=== PATIENT | female | born 1985 | race Caucasian/White ===

== ENCOUNTER 2022-06-27 16:26 | Emergency (ER) | payer MEDICARE, OTHER, SELFPAY ==
[2022-06-27 16:33] VITALS: BP 148/90; PULSE 94; RESP 26; TEMP 36.2; O2SAT 100
--- NOTE | 2022-06-27 16:40 | ED.GENADUL_ITS ---
Discharge Plan Disposition Patient Disposition: Home Condition: Stable Discharge Details Clinical Impression: Vomiting ED Provider: Alexandria Meraz Home Meds and New Rx's Prescriptions: New promethazine 12.5 mg suppository 12.5 mg RI TID PRN (Reason: nausea and vomiting) Qty: 12 0RF Rx Instructions: Take one suppository per rectum up to three times daily as needed No Action gabapentin 400 mg Capsule 400 mg PO PRN PRN (Reason: Pain) bupropion HCl [Wellbutrin] 100 mg Tablet 300 mg PO DAILY Discharge Instructions Instructions: Acute Nausea and Vomiting (ED) Additional Instructions: CT shows no abnormality. I suspect this may be from daily use of marijuana. Take the nausea medication up to 3 times daily as needed approximately 20 minutes before eating or drinking anything. Use of suppositories if actively vomiting. Follow up with primary care provider in 3-5 days. Return to ED sooner if any worsening or concerns. Increase oral fluids. Medical Decision Making 36-year-old female presents to the ER with chief complaint of nausea vomiting which began this morning. Patient actively having episodes of emesis. Labs ordered, urinalysis urine drug screen and 4 mg of Zofran and liter normal saline. CBC shows leukocytosis with white blood cell count of 18.59, absolute neutrophils 16.25, glucose 109, urinalysis shows 40 ketones THC positive. 1804: Patient continuing to vomit after a total of 8mg Zofran, 12.5 mg Promethazine ordered, will consider droperidol. 1836: Patient sleeping after 12.5mg Phenergan. I do suspect cannabinoid hyperemesis syndrome. CT is within normal limits. Patient feeling better after the Phenergan no further emesis noted. I did discuss home care and follow-up care with patient. Discussed strict return instructions. Patient was given Phenergan tablets to go and a prescription for suppositories if needed. This text was generated using [employer] system, please disregard any oddities of phrase or misspellings. Medical Records Medical records reviewed: Yes I reviewed the patient's medical records. Imaging Data Radiologic Study: Imaging: CT Scan Radiologist's impression: IMPRESSION: 1. There is a 2.5 cm collapsed bilocular cyst in the right ovary with peripheral enhancement, most consistent with a recently ruptured and involuting physiologic follicle, or 2 adjacent involuting follicles. Small volume intrapelvic free fluid is also present. These findings are within physiologic range, but may produce symptoms. 2. Small hiatal hernia with slight wall thickening in the distal esophagus which may be due to mild esophagitis, versus reactive changes from recent vomiting. No perforation. 3. Additional nonemergent findings detailed above. Thank you for allowing us to participate in the care of your patient. Dictated and Authenticated by: Josh Naqvi MD Lab Data Lab results reviewed: Yes I reviewed the patient's lab results. Labs: Laboratory Tests Range/Units 06/27/22 06/27/22 06/27/22 16:39 16:39 16:39 WBC (4.4-10.8) 10^3/uL 18.59 H RBC (3.93-5.22) 10^6/uL 4.35 Hgb (11.2-15.7) g/dL 13.9 Hct (36.0-46.0) % 40.9 MCV (80-95) fL 94 MCH (27.0-33.0) pg 32.0 MCHC (32.0-36.0) % 34.0 RDW (11.7-14.6) % 12.2 Plt Count (130-400) 10^3/uL 345 MPV (8.0-11.0) fL 11.3 H Immature Gran % 0.3 Neutrophils % 87.4 Lymphocytes % 8.2 Monocytes % 3.3 Eosinophils % 0.3 Basophils % 0.5 Nucleated RBC % (0.0-0.3) % 0.0 Absolute Neutrophils (1.2-6.7) 10^3/uL 16.25 H Absolute Lymphocytes (1.2-3.4) 10^3/uL 1.52 Absolute Monocytes (0.1-0.8) 10^3/uL 0.61 Absolute Eosinophils (0.0-0.7) 10^3/uL 0.06 Absolute Basophils (0.0-0.2) 10^3/uL 0.09 Sodium (136-145) mmol/L 141 Potassium (3.5-5.1) mmol/L 3.7 Chloride (98-107) mmol/L 103 Carbon Dioxide (21.0-32.0) mmol/L 26.3 Anion Gap (3-11) mmol/L 11.7 H BUN (7-18) mg/dL 12 Creatinine (0.55-1.02) mg/dL 0.8 Est GFR (CKD-EPI 2020) (mL/min/1.73m2) 97.26 Glucose (74-106) mg/dL 109 H Calcium (8.5-10.1) mg/dL 9.6 Magnesium (1.8-2.4) mg/dL 1.9 Total Bilirubin (0.2-1.0) mg/dL 0.4 AST (15-37) U/L 23 ALT (14-59) U/L 26 Alkaline Phosphatase (46-116) U/L 60 Total Protein (6.4-8.2) g/dL 8.3 H Albumin (3.4-5.0) g/dL 4.9 Lipase (73-393) U/L 88 Urine Color (Yellow) Urine Clarity (Clear) Urine pH (5-8) Ur Specific [place] (1.005-1.025) Urine Protein (Negative) mg/dL Urine Ketones (Negative) mg/dL Urine Blood (Negative) Urine Nitrite (Negative) Urine Bilirubin (Negative) Urine Urobilinogen (Up TO 0.2) EU/dL Ur Leukocyte Esterase (Negative) Urine RBC (0-2) HPF Urine WBC (0-5) HPF Ur Epithelial Cells (Negative) HPF Urine Crystals (Negative) HPF Urine Bacteria (Negative) HPF Urine Mucus (Negative) Ur Culture Indicated? Urine Glucose (Negative) mg/dL Urine Opiates Screen (Negative) Urine Methadone Screen (Negative) Ur Barbiturates Screen (Negative) Ur Tricyclics Screen (Negative) Ur Amphetamines Screen (Negative) U Benzodiazepines Scrn (Negative) Urine Cocaine Screen (Negative) Ur THC Screen (Negative) Range/Units 06/27/22 06/27/22 16:47 16:47 WBC (4.4-10.8) 10^3/uL RBC (3.93-5.22) 10^6/uL Hgb (11.2-15.7) g/dL Hct (36.0-46.0) % MCV (80-95) fL MCH (27.0-33.0) pg MCHC (32.0-36.0) % RDW (11.7-14.6) % Plt Count (130-400) 10^3/uL MPV (8.0-11.0) fL Immature Gran % Neutrophils % Lymphocytes % Monocytes % Eosinophils % Basophils % Nucleated RBC % (0.0-0.3) % Absolute Neutrophils (1.2-6.7) 10^3/uL Absolute Lymphocytes (1.2-3.4) 10^3/uL Absolute Monocytes (0.1-0.8) 10^3/uL Absolute Eosinophils (0.0-0.7) 10^3/uL Absolute Basophils (0.0-0.2) 10^3/uL Sodium (136-145) mmol/L Potassium (3.5-5.1) mmol/L Chloride (98-107) mmol/L Carbon Dioxide (21.0-32.0) mmol/L Anion Gap (3-11) mmol/L BUN (7-18) mg/dL Creatinine (0.55-1.02) mg/dL Est GFR (CKD-EPI 2020) (mL/min/1.73m2) Glucose (74-106) mg/dL Calcium (8.5-10.1) mg/dL Magnesium (1.8-2.4) mg/dL Total Bilirubin (0.2-1.0) mg/dL AST (15-37) U/L ALT (14-59) U/L Alkaline Phosphatase (46-116) U/L Total Protein (6.4-8.2) g/dL Albumin (3.4-5.0) g/dL Lipase (73-393) U/L Urine Color (Yellow) Yellow Urine Clarity (Clear) Clear Urine pH (5-8) 7.5 Ur Specific [place] (1.005-1.025) 1.020 Urine Protein (Negative) mg/dL 30 H Urine Ketones (Negative) mg/dL 40 H Urine Blood (Negative) Negative Urine Nitrite (Negative) Negative Urine Bilirubin (Negative) Negative Urine Urobilinogen (Up TO 0.2) EU/dL 0.2 Ur Leukocyte Esterase (Negative) Negative Urine RBC (0-2) HPF 0-2 Urine WBC (0-5) HPF 3-5 Ur Epithelial Cells (Negative) HPF Many Urine Crystals (Negative) HPF Negative Urine Bacteria (Negative) HPF Moderate Urine Mucus (Negative) Heavy Ur Culture Indicated? No/Sq. Contamination Urine Glucose (Negative) mg/dL Negative Urine Opiates Screen (Negative) Negative Urine Methadone Screen (Negative) Negative Ur Barbiturates Screen (Negative) Negative Ur Tricyclics Screen (Negative) Negative Ur Amphetamines Screen (Negative) Negative U Benzodiazepines Scrn (Negative) Negative Urine Cocaine Screen (Negative) Negative Ur THC Screen (Negative) Positive A Sign Out No HPI General Mode of arrival: wheelchair . Date/Time Provider Initiated Documentation: 06/27/22 16:27 . Limitations to Documentation: no limitations . Information obtained by: patient, RN notes reviewed and old records reviewed . HPI Narrative: 36-year-old female presents to the ER with chief complaint of nausea vomiting which began this morning. She reports that she has been unable to keep anything down. She does endorse chills no fever. She also states that she is having abdominal pain. No other associated symptoms. Related Data Home Medications Medication Instructions Recorded Confirmed bupropion HCl 100 mg tablet 300 mg PO DAILY 06/27/22 06/27/22 gabapentin 400 mg capsule 400 mg PO PRN PRN Pain 06/27/22 06/27/22 promethazine 12.5 mg rectal 12.5 mg RI TID PRN nausea and 06/27/22 suppository vomiting #12 ea Previous Rx's Medication Instructions Recorded promethazine 12.5 mg rectal 12.5 mg RI TID PRN nausea and 06/27/22 suppository vomiting #12 ea Allergies Allergy/AdvReac Type Severity Reaction Status Date / Time No Known Allergies Allergy Unverified 06/27/22 16:32 General Stated Complaint: Nausea/Vomit/Diar IBAN: 3 Review of Systems All systems reviewed & are unremarkable except as noted in HPI and below Gastrointestinal Gastrointestinal: Reports abdominal pain, Denies diarrhea, Reports nausea and Reports vomiting PFSH All Active Problems (Updated 06/27/22 @ 18:53 by Alexandria Meraz NP) Vomiting (Acute) Social History Smoking/Tobacco Use Status: Never Smoking risk assessment performed?: Yes Alcohol Intake: current Alcohol Intake frequency: a few times a month Alcohol type: beer, wine and hard liquor Drug use: Occasionally Substance use type: marijuana Do you feel safe at home: Yes Do you feel safe in your relationship?: Yes Exam Narrative Exam Narrative: Constitutional: Alert and oriented x3. Appears stated age. Normal body habitus. Head: Normocephalic, no trauma. Eyes: Pupils PERRL, Red reflex noted, EOM's intact. Eyelids symmetrical without lesions, discharge, or swelling. ENT: Bilateral TM's WNL, External ear normal to inspection, no mastoid TTP, swelling, or erythema, Nasal turbinates WNL, no nasal discharge. Normal dentition, Posterior pharynx WNL, no exudate. Chest: RRR, Normal S1, S2, distal pulses intact. Resp: Lungs clear to auscultation bilaterally, no wheezes, rales, or rhonchi. Abdomen: Soft, non-distended, Normoactive bowel sounds all 4 quads. Musculoskeletal: Normal gait, 5/5 strength to all four extremities. Skin: No suspicious rashes or lesions. Capillary refill less than 2 sec. Neurologic: Cranial nerves II-XII intact. Alert and oriented x 3. Motor: No deficits noted. Sensory: Intact bilaterally all 4 extremities. Reflexes: DTR's intact bilaterally.. Hematologic/Lymphatic: No ecchymosis, no lymphadenopathy. Course Vital Signs Vital signs: Vital Signs Temperature 36.2 C L 06/27/22 16:33 Pulse 94 H 06/27/22 16:33 Respiratory Rate 26 H 06/27/22 16:33 Blood Pressure 148/90 H 06/27/22 16:33 Pulse Oximetry 100 06/27/22 16:33 Temperature 36.2 C L 06/27/22 16:33 Temperature Source Temporal Artery Scan 06/27/22 16:33 Pulse 94 H 06/27/22 16:33 Respiratory Rate 26 H 06/27/22 16:33 Respiratory Effort Non-Labored 06/27/22 16:36 Blood Pressure 148/90 H 06/27/22 16:33 Blood Pressure Position Sitting 06/27/22 16:33 Pulse Oximetry 100 06/27/22 16:33 Oxygen Delivery Method Room Air 06/27/22 16:33 Oxygen Flow Rate 0 06/27/22 16:33 Pain Level 4 06/27/22 16:33
--- NOTE | 2022-06-27 16:45 | DI.CT_ITS ---
Exam(s) CT ABDOMEN PELVIS W EXAM: CT ABDOMEN PELVIS W INDICATION: Nausea, Vomiting abd pain. COMPARISON: No exams were available for comparison TECHNIQUE: FINDINGS: CT examination of the abdomen and pelvis was performed with intravenous infusion of 100 cc of Omnipaq ue 350. Images obtained through the lung bases are unremarkable. Note is made of a hiatal hernia, question mild thickening of distal esophagus, consider esophagitis. The liver is unremarkable in appearance. Gallbladder and bile ducts are CT normal. Pancreas appears normal. Spleen is unremarkable in appearance. Adrenals appear normal. The kidneys are unremarkable with no evidence of hydronephrosis, nephrolithiasis, or renal mass.. Ur inary bladder unremarkable. Abdominal aorta is of normal diameter and no major vascular abnormality is seen. No abdominal wall hernia. No abdominal or pelvic adenopathy. There is a probable right corpus luteum. Handle Sander Operator structures otherwise unremarkable period. Appendix is normal. No evidence of diverticulitis or bowel obstruction. IMPRESSION: Hiatal hernia with a question wall thickening of distal esophagus, consider esophagitis. Corpus luteum versus recently ruptured right ovarian cyst. RADIATION DOSE DELIVERED: 813.19mGy.cm Total DLP 813.19mGy.cm Total DLP RADIATION OPTIMIZATION: All CT scans at this facility use at least one of these dose optimization te chniques: automated exposure control; mA and/or kV adjustment per patient size (includes targeted exa ms where dose is matched to clinical indication); or iterative reconstruction.
[2022-06-27 16:46] LABS: Abs Immature Grans 0.05 10^3/uL (0.0-0.06); Absolute Basophil Count 0.09 10^3/uL (0.0-0.2); Absolute Eosinophil Count 0.06 10^3/uL (0.0-0.7); Absolute Lymphocyte Count 1.52 10^3/uL (1.2-3.4); Absolute Monocyte Count 0.61 10^3/uL (0.1-0.8); Basophils % 0.5; Eosinophils % 0.3; HCT 40.9 % (36.0-46.0); HGB 13.9 g/dL (11.2-15.7); Immature Grans % 0.3; Lymphocytes % 8.2; MCV 94 fL (80-95); MPV 11.3 fL (8.0-11.0); Monocytes % 3.3; Neutrophils % 87.4; Platelet Count 345 10^3/uL (130-400); RBC 4.35 10^6/uL (3.93-5.22); RDW 12.2 % (11.7-14.6); RDW-SD 42.7 fL; WBC 18.59 10^3/uL (4.4-10.8)
[2022-06-27 16:48] LABS: Absolute Neutrophil Count 16.25 10^3/uL (1.2-6.7)
[2022-06-27] MEDS: Ondansetron 4 MG/2 ML VIAL IVP ×2 (16:57→17:51)
[2022-06-27] MEDS: Normal Saline 1,000 ML 1000 ML IV (16:57)
[2022-06-27 16:59] LABS: Bilirubin Negative (Negative); Blood Negative (Negative); Clarity Clear (Clear); Glucose Negative (Negative); Ketones 40 mg/dL (Negative); Leukocyte Esterase Negative (Negative); Nitrite Negative (Negative); Urobilinogen 0.2 EU/dL (Up TO 0.2); pH 7.5 (5-8)
[2022-06-27 17:03] LABS: ALT 26 U/L (14-59); AST 23 U/L (15-37); Albumin 4.9 g/dL (3.4-5.0); Alkaline Phosphatase 60 U/L (46-116); Anion Gap 11.7 mmol/L (3-11); BUN 12 mg/dL (7-18); Bilirubin, Total 0.4 mg/dL (0.2-1.0); CO2 26.3 mmol/L (21.0-32.0); CREATININE 0.8 mg/dL (0.55-1.02); Calcium 9.6 mg/dL (8.5-10.1); Chloride 103 mmol/L (98-107); Estimated GFR 97.26 (mL/min/1.73m2); Glucose 109 mg/dL (74-106); Magnesium 1.9 mg/dL (1.8-2.4); Potassium 3.7 mmol/L (3.5-5.1); Sodium 141 mmol/L (136-145); Total Protein 8.3 g/dL (6.4-8.2)
[2022-06-27 17:06] LABS: *AMPHETAMINES SCREEN URINE Negative (Negative); *BARBITURATES SCREEN URINE Negative (Negative); *BENZODIAZEPINES SCREEN URINE Negative (Negative); Cannabinoids THC Positive (Negative); Cocaine Screen,Urine Negative (Negative); METHADONE URINE SCREEN Negative (Negative); OPIATES URINE SCREEN Negative (Negative)
[2022-06-27 17:08] LABS: Tricyclic Antidepressants Negative (Negative)
[2022-06-27 17:12] LABS: Bacteria Moderate HPF (Negative); C & S Indicated? No/Sq. Contamination; Crystals Negative HPF (Negative); Epithelial Cells Many HPF (Negative); Mucus Heavy (Negative); RBC 0-2 HPF (0-2)
[2022-06-27 17:15] LABS: Lipase 88 U/L (73-393)
[2022-06-27] MEDS: Normal Saline - Diluent 50 ML VIAL IJ (17:32)
[2022-06-27] MEDS: Omnipaque 350 MG/ML 100 ML BTL IJ (17:32)
[2022-06-27] MEDS: Normal Saline Flush 10 ML SYR IVP (17:35)
--- NOTE | 2022-06-27 18:01 | DI.VRAD_ITS ---
PROCEDURE INFORMATION: Exam: CT Abdomen And Pelvis With Contrast Exam date and time: 06/27/2022 5:25 PM Age: 36 years old Clinical indication: Other: Nausea, vomiting abd pain TECHNIQUE: Imaging protocol: Computed tomography of the abdomen and pelvis with contrast. Contrast material: [id number]; Contrast volume: 100 ml; Contrast route: INTRAVENOUS (IV); COMPARISON: No relevant prior studies available. FINDINGS: Lungs: Mild atelectasis or scarring in the right middle lobe. Small granulomatous calcification posterior right lung base. Heart: Heart size normal. Diaphragm: Small hiatal hernia. Slight wall thickening in the distal esophagus may represent reactive changes from recent vomiting, versus mild esophagitis. No perforation. Liver: Normal contour. No mass lesions. No intrahepatic biliary ductal dilatation. Gallbladder and bile ducts: Normal. No calcified stones. No ductal dilation. Pancreas: Normal. No inflammatory changes or ductal dilation. Spleen: Normal. No splenomegaly. Adrenal glands: Normal. No adrenal mass. Kidneys and ureters: No acute abnormalities. No hydronephrosis or hydroureter. No urinary tract stones are identified. Stomach and bowel: The stomach is unremarkable. The small bowel is nondilated with no gross abnormality. No acute colonic abnormalities. Appendix: The appendix is normal in caliber and demonstrates no evidence of appendicitis. Intraperitoneal space: Small amount of intrapelvic free fluid, within physiologic range for a young woman. No free air. Vasculature: No acute process. No abdominal aortic aneurysm. Lymph nodes: No adenopathy. Urinary bladder: The urinary bladder is partially contracted without gross abnormality. Reproductive: Uterus and left ovary are unremarkable. There is a 2.5 cm partially collapsed appearing bilocular cyst with mild peripheral enhancement in the right ovary most consistent with a recently ruptured and involuting bilocular ovarian follicle, versus 2 adjacent involuting follicles. This is within physiologic range but may produce symptoms. Bones/joints: No acute osseous abnormalities. Mild chronic appearing superior endplate compression deformity T12 with moderate disc degenerative changes T11-T12 and 2.5 mm posterior disc bulge and spondylotic ridge producing mild canal stenosis. Soft tissues: Very small fatty umbilical hernia . No evidence of associated bowel herniation or strangulation. IMPRESSION: 1. There is a 2.5 cm collapsed bilocular cyst in the right ovary with peripheral enhancement, most consistent with a recently ruptured and involuting physiologic follicle, or 2 adjacent involuting follicles. Small volume intrapelvic free fluid is also present. These findings are within physiologic range, but may produce symptoms. 2. Small hiatal hernia with slight wall thickening in the distal esophagus which may be due to mild esophagitis, versus reactive changes from recent vomiting. No perforation. 3. Additional nonemergent findings detailed above. Dictated and Authenticated by: Josh Naqvi MD. Ordering:TIRSO Ibrahim MD
== END 2022-06-27 19:34 | disposition home or self-care (01) ==
LOC: ER 19:33
PROVIDERS: Emergency Provider Registered Nurse Emergency
DX: R11.2 Nausea with vomiting, unspecified (principal); D72.829 Elevated white blood cell count, unspecified; Z79.899 Other long term (current) drug therapy
CPT/HCPCS: 36415; 80053; 80307; 81025; 83690; 96361; 96372; 96374; 96375; 96376; 99284; 74177; 81003; 81015; 83735; 85025; J2405; J3490